=== PATIENT | female | born 1965 | race Caucasian/White ===

== ENCOUNTER 2017-11-16 06:27 | Day surgery (SDC) | payer OTHER ==
[2017-11-10 12:15] LABS: Absolute Lymphocytes (CBC) 0.8 K/uL (0.7-4.9); Absolute Monocytes 0.4 K/uL (0.1-1.3); Basophils % 0.6 % (0-1.3); Hematocrit 36.9 % (36.0-45.0); Lymphocytes % 15.7 % (15.3-44.8); MCH 30.7 pg (27.0-35.0); MCV 90.5 fL (80-100); MPV 8.1 fL (7.6-11.3); Monocytes % 8.1 % (3.3-12.3); RBC Red Blood Cell Count 4.08 M/uL (3.86-4.86)
--- NOTE | 2017-11-10 12:28 | RAD REPORT ---
EXAM DESCRIPTION: RAD - Chest Pa And Lat (2 Views) - 11/10/2017 12:16 pm CLINICAL HISTORY: Preop chest, Port-A-Cath removal, right-sided breast cancer, hypertension COMPARISON: February 2017 TECHNIQUE: PA and lateral views of the chest were obtained. FINDINGS: The lungs are clear. Left subclavian Port-A-Cath is in place. No new finding since Octobe r. Surgical clips overlie the right lateral chest and lower axilla. Heart size is normal and central vasculature is within normal limits. No pleural effusion or pneumothorax seen. No acute bony findin g noted. No aortic abnormality. IMPRESSION: No acute cardiopulmonary process. No significant change from comparison.
[2017-11-10 12:31] LABS: Potassium 4.1 mmol/L (3.5-5.1)
--- NOTE | 2017-11-10 18:45 | EKG ---
Test Date: 2017-11-10 Test Time: 11:54:11 Stunt Man: CHRIS MEASUREMENT RESULTS: Intervals: Rate: 65 WV: 202 QRSD: 84 QT: 390 QTc: 405 Dixon: P: 67 WV: 202 QRS: 95 T: 67 INTERPRETIVE STATEMENTS: Normal sinus rhythm vertical axis Borderline ECG Compared to ECG 01/12/2017 07:23:58 Sinus bradycardia no longer present Electronically Signed On 11-10-17 18:44:31 CDT by Adeel High
[2017-11-16] MEDS ORDERED: CEFAZOLIN/SWI 1gm 1 GM/10 ML SYR ONE (06:40)
[2017-11-16] MEDS ORDERED: Ringers Lactate 1,000 ML IV ONE (06:42)
[2017-11-16] MEDS ORDERED: LIDOCAINE 1% MPF 5 ML VIAL ONE (06:57)
[2017-11-16] MEDS ORDERED: BUPIVACAINE 0.5% PF 10 ML VIAL ONE (06:58)
[2017-11-16] MEDS ORDERED: MIDAZOLAM HCL 2 MG/2 ML INJ ONE (07:10)
[2017-11-16] MEDS ORDERED: LIDOCAINE 2% MPF 5 ML VIAL ONE (07:10)
[2017-11-16] MEDS ORDERED: PROPOFOL 200 MG/20 ML VIAL IV ONE (07:10)
[2017-11-16] MEDS ORDERED: FENTANYL CITR 100 MCG/2 ML ONE (07:11)
[2017-11-16] MEDS ORDERED: ONDANSETRON 4 MG/2 ML VIAL ONE (07:12)
--- NOTE | 2017-11-16 08:13 | P.BOP ---
Preoperative diagnosis: breast cancer Postoperative diagnosis: same Primary procedure: Removal of portacath Estimated blood loss: <5cc Specimen: intact portacath Findings: as above Anesthesia: MAC Complications: None Transferred to: Recovery Room Condition: Good
--- NOTE | 2017-11-16 20:18 | OP ---
Date of Procedure: 11/16/2017 Surgeon: Ebenezer Cruz MD Preoperative Diagnosis: Breast cancer. Postoperative Diagnosis: Breast cancer. Procedure: Removal of Port-A-Cath. Specimen: Intact Port-A-Cath. Anesthesia: MAC plus local. Indications: This is a case of a female, who comes to us with history of breast cancer, status post chemotherapy. Fully explained the benefits, alternatives, and risks of removal of Port-A-Cath, which include, but not limited to infection, bleeding, damage to adjacent structures, anesthesia complicat ion, DVTs pulmonary emboli , [place], even . She also understands this may not relieve any symptoms. She might need more than one surgical intervention. She understood. Signed a consent. Description Of Procedure: The patient was brought to the operating room, placed in supine position. Anesthesia was done without complication. A time-out was called. Chest was prepped and draped in a sterile fashion. Local anesthetic was applied followed by sharp incision of the skin. Capsule of t he Port-A-Cath was opened. Port-A-Cath was pulled. Pressure was applied for 15 minutes in insertion point. The area was irrigated. Hemostasis obtained and the area was closed with 3-[address] devyn-Strips on top. Sponge count and instrument counts were correct. The patient tolerated the proce dure well. The patient was sent to recovery in stable condition. Diagnosis: Breast cancer. Procedure: Removal of Port-A-Cath. Disposition: Home. Activity: As tolerated. No lifting. Followup: Followup in my office in 1 week. Call for appointment [phone]. Keep area dry for 48 rissa rs, then may shower. Keep Steri-Strips intact. Medications: See orders. HM/MODL Voice ID: [id number] Report ID: [id number]
== END 2017-11-16 08:37 | disposition home or self-care (01) ==
LOC: OR 06:27
PROVIDERS: ATTEND Surgery
PROC: 02PYX3Z Removal of Infusion Device from Great Vessel, External Approach (ICD-10-PCS; 2017-11-16)
PROC: 0JPT0XZ Removal of Tunneled Vascular Access Device from Trunk Subcutaneous Tissue and Fascia, Open Approach (ICD-10-PCS; principal; 2017-11-16 07:30)
DX: Z45.2 Encounter for adjustment and management of vascular access device (principal); C50.919 Malignant neoplasm of unspecified site of unspecified female breast
CPT/HCPCS: 36415; 71046; 80048; 85025; 88300; 93005; J0690; J2250; J2405; J3010